=== PATIENT | male | born 1965 | race Native Hawaiian/Other Pacific Islander ===

== ENCOUNTER 2020-10-30 14:04 | Emergency (ER) | payer OTHER ==
[2020-10-30 14:04] VITALS: BP 149/110; PULSE 0
[2020-10-30 14:48] LABS: ALBUMIN 2.6 gm/dL (3.5-5.0); BILIRUBIN,TOTAL 0.5 mg/dL (0.0-1.0); CALCIUM 9.7 mg/dL (8.4-10.2); CREATININE, serum 19.94 (0.66-1.25); POTASSIUM 4.5 mmol/L (3.4-5.0); TOTAL PROTEIN 5.6 gm/dL (6.4-8.2)
[2020-10-30 14:49] LABS: HEMATOCRIT 30.3 % (42.0-52.0); HEMOGLOBIN 9.1 g/dl (13.5-18.0); MEAN CELL VOLUME 102 fl (80.0-100.0); MEAN CORPUSCULAR HEMOGLOBIN 31 pg (27.0-31.0); MEAN CORPUSCULAR HGB CONC 30 g/dl (33.0-37.0); MEAN PLATELET VOLUME 11.3 fl (7.4-10.4); PLATELET COUNT 237 K/mm3 (130-400); RED BLOOD COUNT 2.97 M/mm3 (4.20-5.60); REDCELL DISTRIBUTION WIDTH-CV 14.5 % (11.5-14.5)
[2020-10-30 14:55] LABS: INR 1.1 (0.8-3.0); PROTHROMBIN TIME 12.5 SECONDS (9.7-12.8)
[2020-10-30 14:57] LABS: PARTIAL THROMBOPLASTIN TIME 38.7 SECONDS (26.0-37.0)
[2020-10-30 15:32] LABS: LYMPHOCYTE 49 % (20.0-51.0); NEUTROPHILS 47 % (42.0-75.2); NUCLEATED RED BLOOD CELL 2 (0-6)
[2020-10-30 15:33] LABS: OVALOCYTES 1+; PLATELET ESTIMATE NORMAL (NORMAL)
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
--- NOTE | 2020-10-30 16:24 | NUR ---
Patient arrived to the ER as a code blue, in the ER. pin worker met with the patients , Mark ([phone]) and emotional support was provided. Elizabethedwin Jasso present. pin worker provided patients with home options in [place] and the patient chose [facility], home in [place]. Nurse and DON notified. This social media coordinator contacted home, spoke with Edwardo, and notified him that we are still waiting on clearance from the production supply equipment tender and [facility] at this time. Discussed with patients the options on providing a taxi vs. her driving herself home. chooses to drive self home and will notify the couples three children ages 19,13 and 2.
[2020-10-30 16:57] LABS: HIV 1/2 Antibodies Non-Reactive; HIV-1p24 Antigen Non-Reactive
[2020-10-30 17:30] LABS: ARTERIAL BLD GAS O2 SATURATION 97.3 % (92-100); ARTERIAL BLD GAS TCO2 CT 19.1; ARTERIAL BLOOD GAS BASE EXCESS -9.7 (-2-2); ARTERIAL BLOOD GAS HCO3 17.8 meq/L (22-26); ARTERIAL BLOOD GAS PCO2 45.3 mmHg (35-45); ARTERIAL BLOOD GAS pH 7.21 (7.35-7.45)
[2020-10-30 17:31] LABS: ARTERIAL BLOOD GAS PO2 126.1 mmHg (80-100)
--- NOTE | 2020-11-01 13:24 | NUR ---
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 Educated patient's that the state will not issue a "temporary" certificate and provided a phone number for the [facility] that she call call to get help obtaining her husbands benefits.
== END 2020-10-30 18:30 | disposition expired ==
LOC: COL.ER 14:04
PROVIDERS: Family Medicine
DX: I46.9 Cardiac arrest, cause unspecified (principal); I12.9 Hypertensive chronic kidney disease with stage 1 through stage 4 chronic kidney disease, or unspecified chronic kidney disease; E11.22 Type 2 diabetes mellitus with diabetic chronic kidney disease; N18.9 Chronic kidney disease, unspecified; Z20.822 Contact with and (suspected) exposure to COVID-19; Z99.2 Dependence on renal dialysis
CPT/HCPCS: J0171